=== PATIENT | male | born 1990 | race Hispanic/Latino ===

== ENCOUNTER 2022-04-02 19:57 | Emergency (ER) | payer BC ==
[~2022-04-02] VITALS: Ht 167.6 cm; Wt 77.0 kg
[2022-04-02 22:27] VITALS: BP 124/77
[2022-04-02] MEDS ORDERED: PERCOCET 5/325M1 TAB PO (22:57)
[2022-04-02] MEDS ORDERED: CYCLOBENZAPRINE10 MG PO (22:57)
[2022-04-02] MEDS ORDERED: MOTRIN800 MG PO (22:57)
[2022-04-02 23:20] VITALS: BP 120/72
== END 2022-04-02 23:20 | disposition home or self-care (01) | DRG 563 ==
LOC: ED 19:57
DX: S39.012A Strain of muscle, fascia and tendon of lower back, initial encounter (principal); X50.0XXA Overexertion from strenuous movement or load, initial encounter; Y93.B3 Activity, free weights; Y92.39 Other specified sports and athletic area as the place of occurrence of the external cause